=== PATIENT | female | born 1995 | race Caucasian/White ===

== ENCOUNTER → 2017-07-19 22:26 | Observation (INO) ==
--- NOTE | 2017-07-19 22:36 | OB/GYN Progress Note ---
Date of Encounter: 07/19/17 Time of Encounter: 22:00 - Assessment and Plan (1) NST (non-stress test) reactive Current Visit: Yes Status: Acute NST 125 BPM reactive. Discharge home with precautions. (2) 32 weeks gestation of Current Visit: Yes Status: Acute Follow-up with primary OBGYN as scheduled. (3) Viral syndrome Current Visit: No Status: Acute Evaluation and treatment per ER. Subjective - Subjective Interval history: Pt evaluated in ER for viral symptoms. She was sent to L&D for NST at 32 weeks gestation. No related concerns. Good FM. Antepartum ROS: movement normal, no loss of fluid, no vaginal bleeding, no contractions Objective - Vital Signs Vital Signs: Intake and Output 07/19/17 07/19/17 07/19/17 07:59 15:59 23:59 Other: Weight 98.3 kg Patient Weight 07/19/17 23:59 Weight 98.3 kg - Exam FHR: category 1 FHR comments: 125BPM reactive NST
== END | disposition home or self-care (01) ==
LOC: 1NENULAB
PROVIDERS: ADMIT Registered Nurse; ATTEND Registered Nurse